=== PATIENT | male | born 1965 | race Caucasian/White ===

== ENCOUNTER 2023-07-07 18:14 | Inpatient (IN) | payer MEDICARE, MEDICAID, SELFPAY ==
[2023-07-07] VITALS (14 sets, daily range): BP systolic 113–179; BP diastolic 58–80; PULSE 97–106; RESP 15–20; TEMP 36.4–37.8; O2SAT 93–100
--- NOTE | ~2023-07-07 | XR_ITS ---
EXAMINATION: XR chest 1V portable Exam Date/Time: 07/07/2023 22:20 L D RN HISTORY: hypoxia N/V/D X 3 DAYS Comparison: None. RESULT: Lines, tubes, and devices: Right IJ dialysis catheter terminating in the right atrium. Coronary nicci ry stents. Lungs and pleura: Streaky bibasilar opacities, likely representing atelectasis. No focal consolidati on, pleural effusion, or pneumothorax. Cardiomediastinal silhouette: Stable. Other: No acute osseous or upper abdominal finding. IMPRESSION: No acute cardiopulmonary process. Reviewed, dictated and finalized at location K. L D RN
--- NOTE | 2023-07-07 18:33 | ECG_ITS ---
Measurements Intervals [employer] Rate: 103 P: 69 HI: 126 QRS: -71 QRSD: 107 T: 27 QT: 374 QTc: 490 Interpretive Statements SINUS TACHYCARDIA POSSIBLE LEFT ATRIAL ENLARGEMENT INCOMPLETE RIGHT BUNDLE BRANCH BLOCK LEFT ANTERIOR FASCICULAR BLOCK BORDERLINE ST ABNORMALITY- INFERIOR LEADS BASELINE ARTIFACT- I, III, AVR, AVL, AVF ABNORMAL ECG NO PREVIOUS ECG AVAILABLE FOR COMPARISON Electronically Signed On 07-07-2023 20:44:26 MORTGAGE LOAN COMPUTATION CLERK by oJno Still D.O.
--- NOTE | 2023-07-07 18:34 | ED.GENADULT ---
HPI - General Adult General Chief complaint: Nausea/Vomiting/Diarrhea <Rand Mcnulty September, Last Filed: 07/07/23 18:37> Stated complaint: out of meds, DM, dialysis <Rand Mcnulty September, - Last Filed: 07/07/23 18:37> Time Seen by Provider: 07/07/23 18:34 <Rand Mcnulty September, - Last Filed: 07/07/23 18:37> Focused HPI: Vincenzo Mccauley is a 57 y/o male with PMHx of ESRD on HD MWF/ DM / who presents with reports of missling dialysis today/ his insurance changed and he ran out of all of his medications and has not had any in 3 days. Reports of N/V for the past 2-3 days. No abdominal pain. GENERAL: appears chronically unwell/ no acute distress. HEAD: Normocephalic, atraumatic. CHEST: No respiratory distress. HEART: Regular rate and rhythm.? NEURO: ?Alert and oriented x3. Patient screened in triage and initial orders placed.? ?Additional care and disposition to be based upon?diagnostic testing and treatment. <Rand Mcnulty September, Last Filed: 07/07/23 18:37> Focused HPI: Vincenzo Mccauley is a 57 y/o male with PMHx of ESRD on HD MWF/ DM / who presents with reports of missling dialysis today/ his insurance changed and he ran out of all of his medications and has not had any in 3 days. Reports of N/V for the past 2-3 days. No abdominal pain. Patient's family member present at bedside states that patient recently moved from a different part of [place] and his new pharmacy has been able to refill his insulin but has not refilled the remainder of his medications as they did not some of them and stock and are currently working to get him those medications as far as she is aware. Patient is currently denying any pain including any chest pain or shortness of breath. GENERAL: Appears chronically unwell/ no acute distress. HEAD: Normocephalic, atraumatic. CHEST: No respiratory distress. HEART: Regular rate and rhythm.? NEURO: ?Alert and oriented x3. Patient screened in triage and initial orders placed.? ?Additional care and disposition to be based upon?diagnostic testing and treatment. <David Berry MD - Last Filed: 07/07/23 22:42> Related Data Allergies/adverse reactions: Allergies Allergy/AdvReac Type Severity Reaction Status Date / Time Penicillins Allergy Anaphylaxis Verified 07/07/23 18:16 <Rand Ruff APRN - Last Filed: 07/07/23 18:37> Review of Systems Review of Systems: All systems are reviewed and are negative unless stated otherwise in the HPI. <David Berry MD - Last Filed: 07/07/23 22:42> PMFSH Comments Past medical history significant for insulin-dependent diabetes mellitus, surgical history significant for multiple of fistula repairs and port placement. Patient denies any tobacco use, alcohol abuse, or illicit drug use. <David Berry MD - Last Filed: 07/07/23 22:42> Exam Narrative: General: Alert, awake, afebrile, in no acute distress. HEENT: PERRL, no rhinorrhea, no post nasal drip, oropharynx clear. Neck: Trachea midline, no JVD, no lymphadenopathy. Cardiovascular: Tachycardic with regular rhythm, no murmurs, rubs or gallops, no peripheral edema. Respiratory: Clear to auscultation bilaterally, no tachypnea, no wheezing, no rhonchi, no rubs, no respiratory distress. Abdomen: Soft, nontender, nondistended, no rebound, no guarding, no peritoneal signs. Musculoskeletal: No joint swelling or deformity, normal muscle tone. Skin: No rashes or petechia, no signs of infection. Psychiatric: Alert and oriented, normal behavior and judgment for situation. Neurological: Alert and oriented to person, place, and time. Follows all commands. No focal deficits, speech is clear and fluent. <David Berry MD - Last Filed: 07/07/23 22:42> Course Vital Signs Vital signs: Vital Signs Temperature 97.6 F 07/07/23 18:28 Pulse Rate 105 H 07/07/23 18:28 Respiratory Rate 20 07/07/23 18:28 Blood Pressure 136/72 07/07/23 18:28 Pulse Oximetry 99 07/07/23 18:28 Ox
--- NOTE | 2023-07-07 19:29 | PC.NURSE ---
Pt called for blood draw and EKG, no answer.
[2023-07-07] MEDS: FAMOTIDINE 20 MG/2 ML VIAL IV PUSH (19:35)
[2023-07-07] MEDS: ONDANSETRON INJ 4 MG/2 ML VIAL IV PUSH (19:35)
[2023-07-07 19:37] LABS: Glucose Point of Care 472 mg/dl (65-105)
[2023-07-07 19:52] LABS: Basophils Absolute Auto 0.1 K/mm3 (0.0-0.1); Basophils Percent Auto 0.5 % (0.2-1.2); Eosinophils Absolute Auto 0.1 K/mm3 (0-0.3); Eosinophils Percent Auto 0.7 % (0-4.4); Hematocrit 37.1 % (42.0-52.0); Hemoglobin 11.9 g/dL (14.0-18.0); Immature Granulocyte Absolute 0.03 K/mm3 (0.00-0.031); Immature Granulocyte Percent A 0.3 % (0-0.5); Lymphocytes Percent Auto 6.3 % (18.3-44.2); Mean Corpuscular HGB Conc 32.1 g/dl (32-36); Mean Corpuscular Hemoglobin 31.4 pg (26-34); Mean Corpuscular Volume 97.9 fl (80-100); Mean Platelet Volume 11.5 fl (7.4-10.4); Monocytes Absolute Auto 0.8 K/mm3 (0.1-0.6); Monocytes Percent Auto 7.3 % (2.6-8.5); Neutrophils Absolute Auto 9.4 K/mm3 (1.3-6.7); Neutrophils Percent Auto 84.9 % (45.5-73.1); Platelet Count Result 200 k/mm3 (150-375); Red Blood Count 3.79 M/mm3 (4.6-6.20); Red Cell Distribution Width 12.6 % (11.5-14.5)
[2023-07-07 20:03] LABS: Lactic Acid Reflex 1.6 mmol/L (0.7-2.0)
[2023-07-07 20:05] LABS: Alanine Aminotransferase 22 U/L (6-50); Albumin Level 4.6 g/dL (3.5-5.1); Alkaline Phosphatase 95 U/L (38-126); Anion Gap 21 mmol/L (8-16); Aspartate Amino Transferase 30 U/L (17-59); Bilirubin,Total 1.1 mg/dL (0.2-1.3); Blood Urea Nitrogen 50 mg/dL (9-20); Calcium 9.2 mg/dL (8.4-10.2); Carbon Dioxide 23 mmol/L (22-30); Chloride 93 mmol/L (98-107); Estimated CRCL calculation 8 ml/min; Estimated Glomerular Filt Rate 6; Glucose 464 mg/dL (65-110); Lipase 30 U/L (23-300); Potassium 4.6 mmol/L (3.4-5.0); Sodium 137 mmol/L (137-145)
[2023-07-07 20:23] LABS: Troponin I 0.051 ng/mL (0.000-0.034)
[2023-07-07 20:25] LABS: Glucose Point of Care 443 mg/dl (65-105)
[2023-07-07 20:39] LABS: Alveolar/Arterial O2 Gradient 14.2 mmHg; Base Excess ABG -3.1 mEq/l (+/-2.0); Carboxyhemoglobin 0.8 % THb (0-2.0); Fractional Inspired Oxygen 28 %; HCO3 ABG 22.1 mEq/l (22.0-26.0); Methemoglobin ABG 0.3 %THb (0-1.5); Oxygen Content ABG 16.3 %vol (16.0-22.0); Oxygen Saturation ABG 98.7 % (95.0-100.0); Oxyhemoglobin 96.9 % THb (90.0-100.0); PCO2 ABG 40.3 mmHg (35.0-45.0); PO2 ABG 137.9 mmHg (80.0-100.0); PO2 FiO2 Ratio Arterial Blood 4.92 %; Total Hemoglobin 11.8 g/dL (12.0-18.0); pH ABG 7.357 (7.350-7.450)
[2023-07-07 20:40] LABS: Device NASAL CANNULA; Site Drawn RIGHT BRACHIAL
[2023-07-07 20:55] LABS: Beta-Hydroxybutyrate/Acetoacetate 4.95 mmol/L (0.02-0.27)
[2023-07-07 21:15] LABS: Influenza A QL RT-PCR Negative (Negative); Influenza B QL RT-PCR Negative (Negative); SARS-CoV-2 RNA PCR Negative (Negative)
[2023-07-07] MEDS: SODIUM CHLORIDE 0.9% IV 1,000 ML 150 ML IV CONT (21:21)
[2023-07-07] MEDS: SODIUM CHLORIDE 0.9% IV 1,000 ML 999 ML IV CONT (21:29)
[2023-07-07 21:40] LABS: Magnesium 2.3 mg/dL (1.6-2.3); Phosphorus 7.5 mg/dL (2.5-4.5)
[2023-07-07 21:42] LABS: Glucose Point of Care 444 mg/dl (65-105)
--- NOTE | 2023-07-07 21:50 | PC.NURSE ---
Verbal order from Dr. Berry to start potassium drip with start of Insulin drip. provider made aware of hospital insulin drip protocol.
[2023-07-07 21:54] LABS: Hemoglobin A1C 10.6 % (<5.7)
--- NOTE | 2023-07-07 21:57 | PC.NURSE ---
EDP Dr Berry now gave verbal order to only start insulin drip, no other IV fluids.
--- NOTE | 2023-07-07 22:01 | PC.NURSE ---
Pt unable to urinate since coming back to room from triage. pt is a&ox4 and is refusing straight catheter.
[2023-07-07] MEDS: INSULIN HUMAN REGULAR (*BKC) 100 UNITS in SODIUM CHLORIDE 0.9% IV 99 ML 9.1 UNITS IV CONT (22:03)
--- NOTE | 2023-07-07 22:05 | ECG_ITS ---
Measurements Intervals [employer] Rate: 96 P: 58 TN: 139 QRS: -58 QRSD: 85 T: 49 QT: 379 QTc: 481 Interpretive Statements SINUS RHYTHM POSSIBLE LEFT ATRIAL ENLARGEMENT INCOMPLETE RIGHT BUNDLE BRANCH BLOCK LEFT ANTERIOR FASCICULAR BLOCK ABNORMAL ECG COMPARED TO ECG 07/07/2023 19:31:17 SINUS RHYTHM NOW PRESENT Electronically Signed On 07-08-2023 6:44:20 PLATFORM SOFTWARE ENGINEER by Jono Still D.O.
[2023-07-07 22:23] LABS: Acetaminophen < 10 ug/mL (10-30); Salicylate < 1.0 mg/dL (2-20)
[2023-07-07 22:38] LABS: Troponin I 0.055 ng/mL (0.000-0.034)
--- NOTE | 2023-07-07 22:45 | ADMGEN ---
This patient, Vincenzo Mccauley, was admitted to Intensive Care Unit-3. Patient/family oriented to hospital policies and general routines including ID bracelet, bed and alarms, visiting hours, pain management, procedures, bathroom and other care routines, personal items, smoking policy, room service/diet, and visiting hours. Information on how to activate the Rapid Response Team has been discussed. Patient/Family are encouraged to report perceived risks to care and to ask questions if they do not understand what they are told or what they should do.
[2023-07-07 22:59] LABS: Influenza A QL RT-PCR Negative (Negative); Influenza B QL RT-PCR Negative (Negative); RSV RNA, RT-PCR Negative (Negative); SARS-CoV-2 RNA PCR Negative (Negative)
--- NOTE | 2023-07-07 23:13 | PM.IMHP ---
H&P: HPI History of Present Illness Date/Time: 07/07/23 23:13 Chief Complaint: Nausea vomiting diarrhea shortness of breath Narrative: This is a 57-year-old male with past medical history insulin-dependent diabetes mellitus, ESRD on hemodialysis Friday who presents with nausea vomiting and diarrhea for 2 days and reports missing dialysis today and not having taken his medications in 3 days including insulin. He has recently moved from the [facility] and is having insurance issues. He denies abdominal pain chest pain shortness of breath cough fever chills. He characterizes the diarrhea as brown. He was placed on 2 L of nasal cannula. Chest x-ray not reading as overt abnormalities. White count of 11.0. ABG demonstrating pH is 7.35. Anion gap 21. BUN 50. Creatinine 9.3. Glucose 472. Hemoglobin A1c 10.6%. Lactic acid 1.6. Troponin 0.051 and 0.055. Beta hydroxybutyrate 4.95. Salicylate and acetaminophen unremarkable. Flu COVID RSV PCR negative. In the [facility] he was given Zofran, Pepcid, 1 L normal saline bolus. Meds Home Medications and Allergies Allergies Allergy/AdvReac Type Severity Reaction Status Date / Time Penicillins Allergy Anaphylaxis Verified 07/07/23 18:16 Vital Signs Vital Signs - 24 hr 07/07/23 18:28 07/07/23 20:08 07/07/23 20:13 Temperature 97.6 F 98.5 F Pulse Rate 105 H 106 H Respiratory Rate 20 15 Blood Pressure 136/72 179/80 H Pulse Oximetry 99 100 100 Oxygen Delivery Room Air Nasal Cannula Oxygen Flow Rate 3 07/07/23 20:01 07/07/23 20:32 07/07/23 20:47 Temperature Pulse Rate 104 H 102 H 103 H Respiratory Rate 15 18 16 Blood Pressure 179/80 H 171/77 H 130/74 Pulse Oximetry 93 100 Oxygen Delivery Oxygen Flow Rate 07/07/23 21:32 07/07/23 21:45 07/07/23 22:00 Temperature Pulse Rate 97 99 98 Respiratory Rate 16 19 17 Blood Pressure 153/72 H Pulse Oximetry 100 100 Oxygen Delivery Oxygen Flow Rate 07/07/23 22:15 07/07/23 22:17 07/07/23 22:41 Temperature Pulse Rate 99 99 Respiratory Rate 17 17 Blood Pressure 139/73 Pulse Oximetry 100 100 100 Oxygen Delivery Nasal Cannula Oxygen Flow Rate 2 Exam Const: General: comfortable and no acute distress Other: A&O x3. Cooperative Eyes: Pupils: Equal, round and reactive pupils present Neck: Neck: supple Resp: Effort & Inspection: normal respiratory effort Auscultation: crackles Cardio: Rate: regular rate Rhythm: regular rhythm GI: GI Palp: Yes Soft to palpation and No Tenderness to palpation present (GI) Extrem: General: no edema H&P: Results Labs Labs: Short CBC 07/07/23 Range/Units 19:33 WBC 11.0 H (4.5-10.0) K/mm3 Hgb 11.9 L (14.0-18.0) g/dL Hct 37.1 L (42.0-52.0) % Plt Count 200 (150-375) k/mm3 BMP 07/07/23 19:33 Sodium 137 Potassium 4.6 Chloride 93 L Carbon Dioxide 23 BUN 50 H Creatinine 9.30 H Glucose 464 H Calcium 9.2 Cardiac Enzymes 07/07/23 07/07/23 Range/Units 19:33 22:02 Troponin I 0.051 H* 0.055 H* (0.000-0.034) ng/mL Liver Function 07/07/23 Range/Units 19:33 Total Bilirubin 1.1 (0.2-1.3) mg/dL AST 30 (17-59) U/L ALT 22 (6-50) U/L Alkaline Phosphatase 95 (38-126) U/L Albumin 4.6 (3.5-5.1) g/dL Assessment and Plan Assessment and plan (1) DKA (diabetic ketoacidosis): Code(s): E11.10 - Type 2 diabetes mellitus with ketoacidosis without coma Status: Acute (2) Increased anion gap metabolic acidosis: Code(s): E87.29 - Other acidosis Status: Acute (3) ESRD (end stage renal disease) on dialysis: Code(s): N18.6 - End stage renal disease; Z99.2 - Dependence on renal dialysis Status: Acute (4) Nausea, vomiting and diarrhea: Code(s): R11.2 - Nausea with vomiting, unspecified; R19.7 - Diarrhea, unspecified Status: Acute (5) Elevated troponin: Code(s): R79.89 - Other spe
[2023-07-07 23:14] LABS: Glucose Point of Care 400 mg/dl (65-105)
[2023-07-07 23:29] LABS: Fractional Inspired Oxygen 24 %; PO2 VBG 31.1 mmHg (35.0-45.0); pH VBG 7.301 (7.300-7.400)
[2023-07-07 23:30] LABS: Device NASAL CANNULA
[2023-07-07] MEDS: INSULIN HUMAN REGULAR (*BKC) 100 UNITS in SODIUM CHLORIDE 0.9% IV 99 ML IV CONT (23:30)
[2023-07-07 23:51] LABS: Lactic Acid Reflex 2.2 mmol/L (0.7-2.0)
[2023-07-08] VITALS (31 sets, daily range): BP systolic 106–187; BP diastolic 65–101; PULSE 90–106; RESP 12–74; TEMP 35.5–37.7; O2SAT 88–100; BMI 28.4
--- NOTE | 2023-07-08 | ECHO_ITS ---
Patient Info Name: Vincenzo Mccauley Age: 57 years : 1965 Gender: Male Ht: 70 in Wt: 198 lbs BSA: 2.12 m2 HR: 101 bpm BP: 152 / 96 mmHg Heart Rhythm: Sinus Rhythm Technical Quality: Good Exam Date: 07/08/2023 11:25 AM Exam Location: Echo Lab Patient Status: Inpatient Admit Date: 07/07/2023 Staff Ordering Physician: Nano Ireland MD [place] Clerk: Glenny Birmingham RDCS Attending Provider: Nadja Stern MD Referring Physician: Beka GIRALDO; Exam Type: CA echo doppler color flow Study Info Indications - elevated troponin Complete two-dimensional, color flow and Doppler transthoracic echocardiogram is performed. Summary 1. Complete two-dimensional, color flow and Doppler transthoracic echocardiogram is performed. 2. Left ventricular chamber dimension is normal. 3. Left ventricular systolic function is normal, estimated at 65-70%. 4. There is mild concentric increased left ventricular wall thickness. 5. The left ventricular diastolic function is grade I diastolic dysfunction. 6. E/e' 24 is elevated. 7. There is moderate aortic valve sclerosis. 8. There is mild aortic valve stenosis with a peak velocity of 244 cm/s, mean gradient of 13 mmHg, and aortic valve area of 1.6 cm2. 9. Mild pulmonary hypertension, estimated pulmonary arterial systolic pressure is 41 mmHg. Left Ventricle E/e' 24 is elevated. Left ventricular chamber dimension is normal. Left ventricular systolic function is normal, estimated at 65-70%. There is mild concentric increased left ventricular wall thickness. The left ventricular diastolic function is grade I diastolic dysfunction. Right Ventricle Right ventricular systolic function is normal and with normal TAPSE 2.6 cm. Right ventricular chamber dimension is normal. Left Atria Left atrial chamber dimension is normal. Right Atria Right atrial chamber dimension is normal. Aortic Valve The aortic valve is trileaflet. There is moderate aortic valve sclerosis. There is mild aortic valve stenosis with a peak velocity of 244 cm/s, mean gradient of 13 mmHg, and aortic valve area of 1.6 cm2. There is no aortic valve regurgitation. Pulmonic Valve There is no pulmonic regurgitation. Mitral Valve There is no mitral valve stenosis. There is no mitral valve regurgitation. Tricuspid Valve There is no tricuspid valve regurgitation. Mild pulmonary hypertension, estimated pulmonary arterial systolic pressure is 41 mmHg. Pericardium/Pleural There is no pericardial effusion. Inferior Vena Cava Normal inferior vena cava with >50% collapse upon inspiration consistent with normal right atrial pressure, 5 mmHg. Aorta The aortic root size at the sinus of Valsalva is normal. Left Ventricular Outflow Tract Name Value Normal LVOT 2D LVOT Diameter 2.0 cm LVOT Doppler LVOT Peak Gradient 7 mmHg LVOT Mean Gradient 4 mmHg LVOT VTI 23 cm LVOT VTI/AV VTI Ratio 0.5 LVOT Stroke Volume 71 ml LVOT CO 7.0 l/min LVOT CI 3.3 l/min/m2 Pulmonic Valve
[2023-07-08 00:27] LABS: Anion Gap 18 mmol/L (8-16); Blood Urea Nitrogen 50 mg/dL (9-20); Calcium 8.9 mg/dL (8.4-10.2); Carbon Dioxide 25 mmol/L (22-30); Chloride 96 mmol/L (98-107); Estimated CRCL calculation 8 ml/min; Estimated Glomerular Filt Rate 6; Glucose 369 mg/dL (65-110); Magnesium 2.3 mg/dL (1.6-2.3); Phosphorus 6.7 mg/dL (2.5-4.5); Sodium 139 mmol/L (137-145)
[2023-07-08 00:36] LABS: Glucose Point of Care 243 mg/dl (65-105)
[2023-07-08 01:44] LABS: Glucose Point of Care 200 mg/dl (65-105)
[2023-07-08 02:38] LABS: Reflex Lactic Acid Yes or No Add Lactic
[2023-07-08 03:11] LABS: Glucose Point of Care 175 mg/dl (65-105)
[2023-07-08 04:10] LABS: Glucose Point of Care 172 mg/dl (65-105)
[2023-07-08 04:25] LABS: Fractional Inspired Oxygen 24 %; HCO3 VBG 29.8 mEq/l (24.0-30.0); PCO2 VBG 54.3 mmHg (42.0-48.0); PO2 VBG 32.2 mmHg (35.0-45.0); pH VBG 7.358 (7.300-7.400)
[2023-07-08 04:26] LABS: Device NASAL CANNULA
[2023-07-08 04:56] LABS: Basophils Absolute Auto 0.1 K/mm3 (0.0-0.1); Basophils Percent Auto 0.8 % (0.2-1.2); Eosinophils Absolute Auto 0.2 K/mm3 (0-0.3); Hematocrit 34.5 % (42.0-52.0); Hemoglobin 10.9 g/dL (14.0-18.0); Immature Granulocyte Absolute 0.05 K/mm3 (0.00-0.031); Immature Granulocyte Percent A 0.5 % (0-0.5); Lymphocytes Percent Auto 9.1 % (18.3-44.2); Mean Corpuscular HGB Conc 31.6 g/dl (32-36); Mean Corpuscular Hemoglobin 31.3 pg (26-34); Mean Corpuscular Volume 99.1 fl (80-100); Mean Platelet Volume 11.3 fl (7.4-10.4); Monocytes Absolute Auto 0.8 K/mm3 (0.1-0.6); Neutrophils Absolute Auto 7.9 K/mm3 (1.3-6.7); Neutrophils Percent Auto 79.6 % (45.5-73.1); Platelet Count Result 198 k/mm3 (150-375); Red Blood Count 3.48 M/mm3 (4.6-6.20); Red Cell Distribution Width 12.5 % (11.5-14.5); White Blood Count 9.9 K/mm3 (4.5-10.0)
[2023-07-08 05:11] LABS: Alanine Aminotransferase 19 U/L (6-50); Albumin Level 4.2 g/dL (3.5-5.1); Alkaline Phosphatase 97 U/L (38-126); Anion Gap 15 mmol/L (8-16); Aspartate Amino Transferase 20 U/L (17-59); Bilirubin,Total 0.7 mg/dL (0.2-1.3); Blood Urea Nitrogen 51 mg/dL (9-20); Calcium 8.9 mg/dL (8.4-10.2); Carbon Dioxide 26 mmol/L (22-30); Chloride 98 mmol/L (98-107); Estimated CRCL calculation 8 ml/min; Estimated Glomerular Filt Rate 6; Glucose 185 mg/dL (65-110); Magnesium 2.3 mg/dL (1.6-2.3); Phosphorus 5.7 mg/dL (2.5-4.5); Potassium 3.8 mmol/L (3.4-5.0); Sodium 139 mmol/L (137-145)
[2023-07-08 05:27] LABS: Glucose Point of Care 172 mg/dl (65-105)
[2023-07-08 05:29] LABS: Troponin I 0.066 ng/mL (0.000-0.034)
[2023-07-08 06:02] LABS: Lactic Acid Reflex 1.3 mmol/L (0.7-2.0)
[2023-07-08 06:04] LABS: MRSA (PCR) NOT DETECTED (NOT DETECTE)
[2023-07-08 06:05] LABS: Procalcitonin 0.6 ng/mL
[2023-07-08 06:19] LABS: Glucose Point of Care 157 mg/dl (65-105)
[2023-07-08 07:25] LABS: Glucose Point of Care 158 mg/dl (65-105)
[2023-07-08 08:03] LABS: Glucose Point of Care 151 mg/dl (65-105)
[2023-07-08 08:53] LABS: Anion Gap 12 mmol/L (8-16); Blood Urea Nitrogen 52 mg/dL (9-20); Calcium 9.1 mg/dL (8.4-10.2); Carbon Dioxide 30 mmol/L (22-30); Chloride 99 mmol/L (98-107); Estimated CRCL calculation 8 ml/min; Estimated Glomerular Filt Rate 5; Glucose 147 mg/dL (65-110); Sodium 141 mmol/L (137-145)
[2023-07-08] MEDS: ENOXAPARIN 30 MG/0.3 ML SYRINGE SUB-Q (08:59)
[2023-07-08] MEDS: FAMOTIDINE 20 MG/2 ML VIAL 10 MG IV PUSH ×2 (08:59→20:44)
--- NOTE | 2023-07-08 09:00 | WPDCNINT ---
Assessment and Plan Assessment and plan (1) DKA (diabetic ketoacidosis): Code(s): E11.10 - Type 2 diabetes mellitus with ketoacidosis without coma Status: Acute Assessment and Plan: Patient presented with nausea, vomiting, diarrhea. Has not taking his insulin for 3 days prior to admission due to insurance issues, as he has relocated from [facility] to this area. -patient was found to have elevated blood sugars, elevated beta hydroxybutyrate, elevated anion gap. Patient was given 1 L IV fluid bolus and started on insulin infusion per DKA protocol (patient does have end-stage renal disease on dialysis, Friday, Friday, Friday) -currently remains on insulin infusion -anion gap has closed, CO2 is 30 -will transition patient to long-acting insulin and sliding scale insulin -diabetic diet -will have para educator and dietitian evaluate the patient (2) ESRD (end stage renal disease) on dialysis: Code(s): N18.6 - End stage renal disease; Z99.2 - Dependence on renal dialysis Status: Acute Assessment and Plan: Patient has a history of end-stage renal disease on dialysis, Friday, Friday, Friday -nephrology has been consulted -dialysis per Nephrology (3) Nausea, vomiting and diarrhea: Code(s): R11.2 - Nausea with vomiting, unspecified; R19.7 - Diarrhea, unspecified Status: Acute Assessment and Plan: Nausea, vomiting and diarrhea have resolved likely related to diabetic ketoacidosis -continue to monitor -patient on metoclopramide (4) Acute hypoxemic respiratory failure: Code(s): J96.01 - Acute respiratory failure with hypoxia Status: Acute Assessment and Plan: Patient seems to have sleep apnea and desaturates while sleeping. Currently on 2 L nasal cannula with adequate O2 sats -patient may require a sleep study as an outpatient (5) Elevated troponin: Code(s): R79.89 - Other specified abnormal findings of blood chemistry Status: Acute Assessment and Plan: Troponins were mildly elevated but flat, could be related to diabetic ketoacidosis, end-stage renal disease, -patient denies any chest pain, difficulty breathing -will check echocardiogram Plan DVT prophylaxis: Lovenox Stress ulcer prophylaxis: Not indicated Nutrition: Diabetic diet Code Status: Full code Critical Care Time Spent: 47 minutes Due to a high probability of clinically significant, life threatening deterioration, the patient required my highest level of preparedness to intervene emergently and I personally spent this critical care time directly and personally managing the patient. This critical care time included obtaining a history; examining the patient; pulse oximetry; ordering and review of studies; arranging urgent treatment with development of a management plan; evaluation of patient's response to treatment; frequent reassessment; and discussions with other providers. It was exclusive of separately billable procedures and treating other patients and teaching time. Please see Assessment and Plan section and the rest of the note for further information on patient assessment and treatment This dictation may have been done utilizing a voice recognition system. Attempts have been made to correct errors. However, there may be uncorrected grammatical, spelling, and recognitions errors present. Juvenile Officer Consult Note Consult date: 07/08/23 Reason for consult: Diabetic ketoacidosis, nausea, vomiting, diarrhea, end-stage renal disease on HD (M,W,F), missed dialysis on day of admission HPI: Vincenzo Mccauley is a 57 year old male with past medical history of diabetes, on insulin, end-stage renal disease on hemodialysis, Friday, Friday, Friday, legally blind, presented the ED on 07/07/2023 with complains of nausea, vomiting, diarrhea for 2-3 days and also reported missing dialysis on the day of admission on 07/07/2023. He has not taken medications the last 3 days prior to admis
[2023-07-08] MEDS: DEXTROSE 5%/0.45% SOD CHL 1,000 ML 150 ML (09:02)
[2023-07-08 09:28] LABS: Glucose Point of Care 139 mg/dl (65-105)
[2023-07-08] MEDS: INSULIN GLARGINE (*BKC) 100 UNITS/ML 18 UNITS SUB-Q (09:33)
[2023-07-08 10:37] LABS: Glucose Point of Care 138 mg/dl (65-105)
[2023-07-08 11:08] LABS: Hepatitis B Surface Antigen Negative (Negative)
[2023-07-08 11:17] LABS: Glucose Point of Care 224 mg/dl (65-105)
[2023-07-08 12:44] LABS: Hepatitis B Surface Anti Res Indeterminate
[2023-07-08 14:33] LABS: Toxigenic C. Diff NEGATIVE (NEGATIVE)
--- NOTE | 2023-07-08 17:04 | PCCDE ---
Pt sleeping at attempt to educate. FJ
[2023-07-08] MEDS: INSULIN ASPART (*BKC) 100 UNITS/ML SUB-Q (17:06)
--- NOTE | 2023-07-08 17:16 | PM.IMPN ---
Progress Note: A&P Assessment and Plan (1) DKA (diabetic ketoacidosis): Code(s): E11.10 - Type 2 diabetes mellitus with ketoacidosis without coma Status: Acute Assessment and Plan: Patient presented with nausea, vomiting, diarrhea. Has not taking his insulin for 3 days prior to admission due to insurance issues, as he has relocated from [facility] to this area. - DKA protocol in ICU -pt off insulin drip ok to transfer to medical floor (2) ESRD (end stage renal disease) on dialysis: Code(s): N18.6 - End stage renal disease; Z99.2 - Dependence on renal dialysis Status: Acute Assessment and Plan: Patient has a history of end-stage renal disease on dialysis, Friday, Friday, Friday -nephrology has been consulted -dialysis per Nephrology (3) Nausea, vomiting and diarrhea: Code(s): R11.2 - Nausea with vomiting, unspecified; R19.7 - Diarrhea, unspecified Status: Acute Assessment and Plan: Nausea, vomiting and diarrhea have resolved likely related to diabetic ketoacidosis -patient on metoclopramide (4) Acute hypoxemic respiratory failure: Code(s): J96.01 - Acute respiratory failure with hypoxia Status: Acute Assessment and Plan: Patient seems to have sleep apnea and desaturates while sleeping. Currently on 2 L nasal cannula with adequate O2 sats -patient may require a sleep study as an outpatient (5) Elevated troponin: Code(s): R79.89 - Other specified abnormal findings of blood chemistry Status: Acute Assessment and Plan: Troponins were mildly elevated but flat, could be related to diabetic ketoacidosis, end-stage renal disease, - await echo report Plan . Subjective Date/time seen: 07/08/23 17:16 Interval history: ?57-year-old male with past medical history insulin-dependent diabetes mellitus, ESRD on hemodialysis Friday who presents with nausea vomiting and diarrhea for 2 days and reports missing dialysis today and not having taken his medications in 3 days including insulin.? He has recently moved from the [facility] area and is having insurance issues.? He denies abdominal pain chest pain shortness of breath cough fever chills.? He characterizes the diarrhea as brown. Pt has been missing medications, pt moved from [facility] . Admitted in DKA DKA is resolved ok to transfer to the floor currently receiving dialysis. Review of Systems Review of Systems: No specific complaints today Exam Const: General: comfortable and no acute distress Other: A&O x3. Cooperative Eyes: Pupils: Equal, round and reactive pupils present Neck: Neck: supple Resp: Effort & Inspection: normal respiratory effort Auscultation: crackles Cardio: Rate: regular rate Rhythm: regular rhythm GI: GI Palp: Yes Soft to palpation and No Tenderness to palpation present (GI) Neuro: Cranial nerves: Yes Equal, round and reactive pupils present Extrem: General: no edema Objective Data Vital Signs Vital Signs: Vital Signs - 24 hr 07/07/23 18:28 07/07/23 20:08 07/07/23 20:13 Temperature 36.4 C 36.9 C Pulse Rate 105 H 106 H Respiratory Rate 20 15 Blood Pressure 136/72 179/80 H Pulse Oximetry 99 100 100 Oxygen Delivery Room Air Nasal Cannula Oxygen Flow Rate 3 07/07/23 20:01 07/07/23 20:32 07/07/23 20:47 Temperature Pulse Rate 104 H 102 H 103 H Respiratory Rate 15 18 16 Blood Pressure 179/80 H 171/77 H 130/74 Pulse Oximetry 93 100 Oxygen Delivery Oxygen Flow Rate 07/07/23 21:32 07/07/23 21:45 07/07/23 22:00 Temperature Pulse Rate 97 99 98 Respiratory Rate 16 19 17 Blood Pressure 153/72 H Pulse Oximetry 100 100 Oxygen Delivery Oxygen Flow Rate 07/07/23 22:15 07/07/23 22:17 07/07/23 22:41 Temperature Pulse Rate 99 99 Respiratory Rate 17 17 Blood Pressure 139/73 Pulse Oximetry 100 100 100 Oxygen Delivery Nasal Cannula Oxygen Flow Rate
--- NOTE | 2023-07-08 17:30 | PM.CNNEP ---
Assessment and Plan Assessment and plan (1) End stage renal disease: Code(s): N18.6 - End stage renal disease Status: Chronic Assessment and Plan: HD today eventually transition to Fri/Fri/Friday outpatient dialysis schedule outpatient dialysis clinic = [facility] (2) DKA (diabetic ketoacidosis): Code(s): E11.10 - Type 2 diabetes mellitus with ketoacidosis without coma Status: Acute Assessment and Plan: elevated blood sugars in association with elevated beta hydroxybutyrate as wekkas elevated anion gap s/p IVF bolus and initiated on insulin gtt gap has closed -- transitioning off insulin gtt to long acting insulin and SSI follow blood sugars (3) Nausea, vomiting and diarrhea: Code(s): R11.2 - Nausea with vomiting, unspecified; R19.7 - Diarrhea, unspecified Status: Acute Assessment and Plan: likely secondary to #2 resumed on home reglan -- component of gastroparesis (?) follow symptoms (4) Hypoxia: Code(s): R09.02 - Hypoxemia Status: Acute Assessment and Plan: drop in O2 saturations with sleep -- possbly due to undiagnosed SWATHI supplmental oxygen in place with good oxygenation will likely need outpatient sleep study (5) Anemia: Code(s): D64.9 - Anemia, unspecified Status: Chronic Assessment and Plan: presumably related to ESRD Epogen with HD follow trend of H/H I will continue to follow the patient with you while he remains hospitalized and make further recommendations as needed. Thank you for allowing me to participate in the care of this patient. History of Present Illness Reason for Consult Consult date: 07/08/23 Reason for consult: end stage renal disease Chief Complaint Chief complaint: DKA,ESRD on HD MWF History of Present Illness Narrative: The patient is a 57-year-old male with a past medical history as outlined below who presented to [facility] Emergency Room with complaints of nausea, vomiting, and diarrhea. The patient reports the nausea, vomiting, diarrhea has been going on for the past 2-3 days if not longer and because he felt so bad, he did not go to his dialysis treatment that was scheduled for yesterday on 07/07/2023. He reports recently moving to this area from [facility] and apparently has had some issues and problems with his medical insurance that resulted in him not being able to take his medications for last 3 days if not longer. Due to the persistence of the in GI symptoms as mentioned, he presented to the ER for further assessment. Workup and evaluation emergency room noted the patient to be hemodynamically stable but with the noted GI symptoms. Routine blood test demonstrated labs consistent with his known history of end-stage renal disease but he was noted have a blood sugar of 464, and anion gap of 21, an elevated beta hydroxybutyrate. Salicylate and acetaminophen levels within normal limits and subsequent viral testing for influenza, COVID, and RSV were negative. His hemoglobin A1c was noted to be 10.6 and his troponins were mildly elevated but flat. Given his hyperglycemia and evidence of DKA, he was given a 1 L fluid bolus and started on insulin drip with subsequent admission to the ICU for further management. Since his admission to the ICU, his insulin drip is being weaned off as his anion gap is closed and he has had no further issues or problems with regard to nausea, vomiting or diarrhea. Overall he states he feels much better. Renal consultation was requested due to his end-stage renal disease. The patient normally dialyzed on a Friday, Friday, Friday dialysis schedule at for cine assault in/[facility] but as already mentioned above, he missed his dialysis treatment on Friday. He has no critical electrolyte abnormalities and his volume status is stable at this time. He did of course have DKA but this has
[2023-07-08 17:57] LABS: Glucose Point of Care 279 mg/dl (65-105)
[2023-07-08 18:42] LABS: Anion Gap 11 mmol/L (8-16); Blood Urea Nitrogen 32 mg/dL (9-20); Calcium 9.2 mg/dL (8.4-10.2); Carbon Dioxide 26 mmol/L (22-30); Chloride 101 mmol/L (98-107); Estimated CRCL calculation 13 ml/min; Estimated Glomerular Filt Rate 10; Glucose 194 mg/dL (65-110); Potassium 3.6 mmol/L (3.4-5.0); Sodium 138 mmol/L (137-145)
[2023-07-08 18:54] LABS: Hemoglobin A1C 10.5 % (<5.7)
[2023-07-08 20:38] LABS: Glucose Point of Care 151 mg/dl (65-105)
--- NOTE | 2023-07-08 23:05 | PC.NURSE ---
Report given to Diana SETHI. No questions. All patient belongings gathered and transferred with patient.
--- NOTE | 2023-07-08 23:08 | PC.NURSE ---
Addendum entered by Diana Sosa RN 07/09/23 01:05: Report received from JOSSIE Proctor. Original Note: This pt was transferred from ICU to 2nd Medical Room 047 @[id number].
[2023-07-09] VITALS (13 sets, daily range): BP systolic 100–159; BP diastolic 47–88; PULSE 89–100; RESP 16–18; TEMP 36.8–37; O2SAT 97–99; BMI 28.4
[2023-07-09 04:11] LABS: Glucose Point of Care 290 mg/dl (65-105)
[2023-07-09 05:28] LABS: Basophils Absolute Auto 0.1 K/mm3 (0.0-0.1); Eosinophils Absolute Auto 0.3 K/mm3 (0-0.3); Eosinophils Percent Auto 4.2 % (0-4.4); Hematocrit 34.9 % (42.0-52.0); Hemoglobin 11.3 g/dL (14.0-18.0); Immature Granulocyte Absolute 0.05 K/mm3 (0.00-0.031); Immature Granulocyte Percent A 0.7 % (0-0.5); Lymphocytes Absolute Auto 0.84 K/mm3 (0.9-3.2); Lymphocytes Percent Auto 12.1 % (18.3-44.2); Mean Corpuscular HGB Conc 32.4 g/dl (32-36); Mean Corpuscular Hemoglobin 31.8 pg (26-34); Mean Corpuscular Volume 98.3 fl (80-100); Monocytes Absolute Auto 0.6 K/mm3 (0.1-0.6); Monocytes Percent Auto 8.8 % (2.6-8.5); Neutrophils Absolute Auto 5.1 K/mm3 (1.3-6.7); Neutrophils Percent Auto 73.2 % (45.5-73.1); Platelet Count Result 199 k/mm3 (150-375); Red Blood Count 3.55 M/mm3 (4.6-6.20); Red Cell Distribution Width 12.5 % (11.5-14.5)
[2023-07-09 05:43] LABS: Alanine Aminotransferase 18 U/L (6-50); Albumin Level 4.2 g/dL (3.5-5.1); Alkaline Phosphatase 103 U/L (38-126); Anion Gap 12 mmol/L (8-16); Aspartate Amino Transferase 21 U/L (17-59); Bilirubin,Total 0.7 mg/dL (0.2-1.3); Blood Urea Nitrogen 22 mg/dL (9-20); Calcium 9.3 mg/dL (8.4-10.2); Carbon Dioxide 24 mmol/L (22-30); Chloride 101 mmol/L (98-107); Estimated CRCL calculation 12 ml/min; Estimated Glomerular Filt Rate 9; Glucose 296 mg/dL (65-110); Phosphorus 4.8 mg/dL (2.5-4.5); Potassium 4.3 mmol/L (3.4-5.0); Sodium 137 mmol/L (137-145)
[2023-07-09 08:15] LABS: Glucose Point of Care 260 mg/dl (65-105)
[2023-07-09] MEDS: FUROSEMIDE 80 MG TABLET PO ×2 (08:26→16:30)
[2023-07-09] MEDS: SEVELAMER CARBONATE 800 MG TABLET 1600 MG PO ×3 (08:27→16:29)
[2023-07-09] MEDS: CLOPIDOGREL BISULFATE 75 MG TABLET PO (08:27)
[2023-07-09] MEDS: ENOXAPARIN 30 MG/0.3 ML SYRINGE SUB-Q (08:28)
[2023-07-09] MEDS: SERTRALINE HCL 50 MG TABLET PO (08:28)
[2023-07-09] MEDS: FAMOTIDINE 20 MG/2 ML VIAL 10 MG IV PUSH ×2 (08:29→21:03)
[2023-07-09] MEDS: INSULIN ASPART (*BKC) 100 UNITS/ML SUB-Q ×2 (08:33→21:02)
[2023-07-09] MEDS: INSULIN GLARGINE (*BKC) 100 UNITS/ML 18 UNITS SUB-Q (08:34)
--- NOTE | 2023-07-09 09:01 | PM.IMPN ---
Progress Note: A&P Assessment and Plan (1) DKA (diabetic ketoacidosis): Code(s): E11.10 - Type 2 diabetes mellitus with ketoacidosis without coma Status: Acute Assessment and Plan: Patient presented with nausea, vomiting, diarrhea. Has not taking his insulin for 3 days prior to admission due to insurance issues, as he has relocated from [facility] to this area. - DKA protocol in ICU -pt off insulin drip ok to transfer to medical floor 07/08 Lantus 18 units daily and high-dose sliding scale initiated yesterday patient's home dose of Lantus is 30 units daily hypoglycemia protocol in place morning glucose 296 will increase Lantus dosing today continue glucose monitoring (2) ESRD (end stage renal disease) on dialysis: Code(s): N18.6 - End stage renal disease; Z99.2 - Dependence on renal dialysis Status: Acute Assessment and Plan: Patient has a history of end-stage renal disease on dialysis, Friday, Friday, Friday -nephrology has been consulted -dialysis per Nephrology 07/08 outpatient dialysis clinic = [facility] patient went to dialysis today dialysis stopped early due to her behavior with dialysis nurse notified okay with stopping early- 600 of fluid off BUN 22, creatinine 6.5 (3) Nausea, vomiting and diarrhea: Code(s): R11.2 - Nausea with vomiting, unspecified; R19.7 - Diarrhea, unspecified Status: Acute Assessment and Plan: Nausea, vomiting and diarrhea have resolved likely related to diabetic ketoacidosis -patient on metoclopramide. 07/08 patient denied any nausea vomiting or diarrhea at this time. resolved (4) Acute hypoxemic respiratory failure: Code(s): J96.01 - Acute respiratory failure with hypoxia Status: Acute Assessment and Plan: Patient seems to have sleep apnea and desaturates while sleeping. Currently on 2 L nasal cannula with adequate O2 sats -patient may require a sleep study as an outpatient 07/08 patient denies history of sleep apnea, when questioned about his respiratory symptoms throughout the night, such a awakening by coughing, he expresses he does not know patient observed on room air with no respiratory distress noted (5) Elevated troponin: Code(s): R79.89 - Other specified abnormal findings of blood chemistry Status: Acute Assessment and Plan: Troponins were mildly elevated but flat, could be related to diabetic ketoacidosis, end-stage renal disease, - await echo report 07/08 echo noted Left ventricular systolic function is normal, estimated at 65-70%. The left ventricular diastolic function is grade I diastolic dysfunction. Plan . Time Spent With Patient Time with patient: 15 - 25 minutes Subjective Date/time seen: 07/09/23 09:01 Interval history: 07/06 Chief Complaint: Nausea vomiting diarrhea shortness of breath Narrative: This is a 57-year-old male with past medical history insulin-dependent diabetes mellitus, ESRD on hemodialysis Friday who presents with nausea vomiting and diarrhea for 2 days and reports missing dialysis and not having taken his medications for 3 days including insulin. He has recently moved from the [facility] and is having insurance issues. He denies abdominal pain chest pain shortness of breath cough fever chills. He characterizes the diarrhea as brown. He was placed on 2 L of nasal cannula. Chest x-ray not reading as overt abnormalities. White count of 11.0. ABG demonstrating pH is 7.35. Anion gap 21. BUN 50. Creatinine 9.3. Glucose 472. Hemoglobin A1c 10.6%. Lactic acid 1.6. Troponin 0.051 and 0.055. Beta hydroxybutyrate 4.95. Salicylate and acetaminophen unremarkable. Flu COVID RSV PCR negative. 07/07 Patient was ICU for DKA, transitioned off insulin infusion and transferred to medical floor. denies shortness of breath, chest pain, abdominal pain, nausea, vomiti
--- NOTE | 2023-07-09 11:06 | P.PNNP_ITS ---
Progress Note: A&P Assessment and Plan (1) End stage renal disease: Code(s): N18.6 - End stage renal disease Status: Chronic Assessment and Plan: * HD today to transition back to Fri/Fri/Friday outpatient dialysis schedule * follow electrolytes, volume status, and clearance * outpatient dialysis clinic = [facility] Arreola (2) DKA (diabetic ketoacidosis): Code(s): E11.10 - Type 2 diabetes mellitus with ketoacidosis without coma Status: Resolved Assessment and Plan: * elevated blood sugars in association with elevated beta hydroxybutyrate as well as elevated anion gap on admission * s/p IVF bolus and initiated on insulin gtt * gap has closed -- off insulin gtt * started on long acting insulin and SSI * follow blood sugars (3) Nausea, vomiting and diarrhea: Code(s): R11.2 - Nausea with vomiting, unspecified; R19.7 - Diarrhea, unspecified Status: Acute Assessment and Plan: * likely secondary to #2 * resumed on home reglan -- component of gastroparesis (?) * follow symptoms (4) Hypoxia: Code(s): R09.02 - Hypoxemia Status: Acute Assessment and Plan: * drop in O2 saturations with sleep -- possbly due to undiagnosed SWATHI * supplmental oxygen in place with good oxygenation * will likely need outpatient sleep study (5) Anemia: Code(s): D64.9 - Anemia, unspecified Status: Chronic Assessment and Plan: * presumably related to ESRD * Epogen with HD * follow trend of H/H Not opposed to discharge from renal perspective if otherwise medically stable. Will continue to follow. Subjective Date/time seen: 07/09/23 11:06 Interval history: Follow-up for end stage renal disease on hemodialysis. Transferred out of ICU after weaned off insulin gtt; tolerated HD treatment yesterday and tolerating HD treatment currently at the time of my visit (seen on HD at 10:55AM); no apparent distress voiced overnight or earlier this morning. Exam Narrative: General: WD/WN male in NAD Heart: normal S1 and S2; no rub Lungs: clear to auscultation Abdomen: soft, nontender, nondistended, positive bowel sounds Extremities: no cyanosis or clubbing; no edema Skin: warm and dry Objective Data Vital Signs Vital Signs: Vital Signs Temp Pulse Resp BP Pulse Ox O2 Del Method O2 Flow Rate 07/09/23 10:13 98.2 F 90 16 145/77 H 07/09/23 08:25 96 159/73 H 99 07/08/23 23:20 Room Air 07/08/23 23:27 98.2 F 103 H 17 147/79 H 96 07/08/23 22:00 98.3 F 90 18 136/83 100 07/08/23 20:31 98.4 F 96 14 136/67 07/08/23 20:20 94 149/94 H 07/08/23 20:15 95 125/72 07/08/23 20:00 95 18 100 Room Air 07/08/23 20:00 95 147/80 H 07/08/23 19:45 99 133/72 07/08/23 19:30 95 167/81 H 07/08/23 19:15 94 158/77 H 07/08/23 19:00 98 106/80 07/08/23 18:45 95 128/73 07/08/23 18:30 97 160/77 H 07/08/23 18:00 98.7 F 100 18 131/73 100 07/08/23 18:15 97 144/79 H 07/08/23 18:00 97 131/73 07/08/23 17:45 99 155/75 H 07/08/23 17:30 101 H 148/89 H 07/08/23 17:15 101 H 135/86 07/08/23 17:00 101 H 150/81 H
--- NOTE | 2023-07-09 11:06 | PM.PNNEP ---
Progress Note: A&P Assessment and Plan (1) End stage renal disease: Code(s): N18.6 - End stage renal disease Status: Chronic Assessment and Plan: HD today to transition back to Fri/Fri/Friday outpatient dialysis schedule follow electrolytes, volume status, and clearance outpatient dialysis clinic = [facility]/Marisa Arreola (2) DKA (diabetic ketoacidosis): Code(s): E11.10 - Type 2 diabetes mellitus with ketoacidosis without coma Status: Resolved Assessment and Plan: elevated blood sugars in association with elevated beta hydroxybutyrate as well as elevated anion gap on admission s/p IVF bolus and initiated on insulin gtt gap has closed -- off insulin gtt started on long acting insulin and SSI follow blood sugars (3) Nausea, vomiting and diarrhea: Code(s): R11.2 - Nausea with vomiting, unspecified; R19.7 - Diarrhea, unspecified Status: Acute Assessment and Plan: likely secondary to #2 resumed on home reglan -- component of gastroparesis (?) follow symptoms (4) Hypoxia: Code(s): R09.02 - Hypoxemia Status: Acute Assessment and Plan: drop in O2 saturations with sleep -- possbly due to undiagnosed SWATHI supplmental oxygen in place with good oxygenation will likely need outpatient sleep study (5) Anemia: Code(s): D64.9 - Anemia, unspecified Status: Chronic Assessment and Plan: presumably related to ESRD Epogen with HD follow trend of H/H Not opposed to discharge from renal perspective if otherwise medically stable. Will continue to follow. Subjective Date/time seen: 07/09/23 11:06 Interval history: Follow-up for end stage renal disease on hemodialysis. Transferred out of ICU after weaned off insulin gtt; tolerated HD treatment yesterday and tolerating HD treatment currently at the time of my visit (seen on HD at 10:55AM); no apparent distress voiced overnight or earlier this morning. Exam Narrative: General: WD/WN male in NAD Heart: normal S1 and S2; no rub Lungs: clear to auscultation Abdomen: soft, nontender, nondistended, positive bowel sounds Extremities: no cyanosis or clubbing; no edema Skin: warm and dry Objective Data Vital Signs Vital Signs: Vital Signs Temp Pulse Resp BP Pulse Ox O2 Del Method O2 Flow Rate 07/09/23 10:13 98.2 F 90 16 145/77 H 07/09/23 08:25 96 159/73 H 99 07/08/23 23:20 Room Air 07/08/23 23:27 98.2 F 103 H 17 147/79 H 96 07/08/23 22:00 98.3 F 90 18 136/83 100 07/08/23 20:31 98.4 F 96 14 136/67 07/08/23 20:20 94 149/94 H 07/08/23 20:15 95 125/72 07/08/23 20:00 95 18 100 Room Air 07/08/23 20:00 95 147/80 H 07/08/23 19:45 99 133/72 07/08/23 19:30 95 167/81 H 07/08/23 19:15 94 158/77 H 07/08/23 19:00 98 106/80 07/08/23 18:45 95 128/73 07/08/23 18:30 97 160/77 H 07/08/23 18:00 98.7 F 100 18 131/73 100 07/08/23 18:15 97 144/79 H 07/08/23 18:00 97 131/73 07/08/23 17:45 99 155/75 H 07/08/23 17:30 101 H 148/89 H 07/08/23 17:15 101 H 135/86 07/08/23 17:00 101 H 150/81 H 07/08/23 16:49 100 139/100 H 07/08/23 16:20 2 07/08/23 16:15 98.4 F 99 15 160/73 H 07/08/23 16:00 100 74 H 100 Nasal Cannula 2.5 07/08/23 16:00 98.3 F 100 74 H 160/74 H 100 Intake/Output Intake/Output: Intake & Output 07/06/23 07/07/23 07/08/23 07/09/23 23:59 23:59 23:59 23:59 Intake Total 400 460 240 Output Total 2000 Balance 400 -1540 240 Meds/Results Medications: Active Medications Generic Name Dose Route Start Last Admin Trade Name Freq PRN Reason Stop Dose Admin Clopidogrel Bisulfate 75 mg 07/09/23 09:00 07/09/23 08:27 Clopidogrel Bisulfate 75 Mg Tablet PO 75 mg DAILY KAITLYN Administration Dextrose 12.5 gm
[2023-07-09 11:52] LABS: Glucose Point of Care 107 mg/dl (65-105)
[2023-07-09] MEDS: PRAMIPEXOLE 0.25 MG TABLET 0.75 MG PO ×3 (12:53→21:05)
[2023-07-09] MEDS: METOCLOPRAMIDE HCL INJ 10 MG/2 ML VIAL 2.5 MG IV PUSH ×3 (12:54→23:02)
[2023-07-09 16:57] LABS: Glucose Point of Care 69 mg/dl (65-105)
[2023-07-09 20:44] LABS: Glucose Point of Care 204 mg/dl (65-105)
[2023-07-10] MEDS: METOCLOPRAMIDE HCL INJ 10 MG/2 ML VIAL 2.5 MG IV PUSH ×2 (05:10→12:52)
[2023-07-10 06:10] LABS: Hematocrit 35.9 % (42.0-52.0); Hemoglobin 11.8 g/dL (14.0-18.0); Mean Corpuscular HGB Conc 32.9 g/dl (32-36); Mean Corpuscular Hemoglobin 31.1 pg (26-34); Mean Corpuscular Volume 94.5 fl (80-100); Mean Platelet Volume 10.7 fl (7.4-10.4); Platelet Count Result 220 k/mm3 (150-375); Red Cell Distribution Width 12.4 % (11.5-14.5); White Blood Count 5.1 K/mm3 (4.5-10.0)
[2023-07-10 06:23] LABS: Alanine Aminotransferase 19 U/L (6-50); Albumin Level 4.1 g/dL (3.5-5.1); Alkaline Phosphatase 98 U/L (38-126); Anion Gap 9 mmol/L (8-16); Aspartate Amino Transferase 27 U/L (17-59); Bilirubin,Total 0.5 mg/dL (0.2-1.3); Blood Urea Nitrogen 23 mg/dL (9-20); Calcium 9.5 mg/dL (8.4-10.2); Carbon Dioxide 27 mmol/L (22-30); Chloride 101 mmol/L (98-107); Estimated CRCL calculation 11 ml/min; Estimated Glomerular Filt Rate 8; Glucose 208 mg/dL (65-110); Magnesium 2.2 mg/dL (1.6-2.3); Phosphorus 5.3 mg/dL (2.5-4.5); Potassium 4.1 mmol/L (3.4-5.0); Sodium 137 mmol/L (137-145)
--- NOTE | 2023-07-10 07:56 | P.DS_ITS ---
DS: Admitting Diagnosis Discharge Date 07/10/23 Admitting Diagnosis DKA, ESRD DS: Discharge Diagnosis Discharge Diagnosis (1) DKA (diabetic ketoacidosis): Code(s): E11.10 - Type 2 diabetes mellitus with ketoacidosis without coma Status: Resolved Assessment and Plan: Patient presented with nausea, vomiting, diarrhea. Has not taking his insulin for 3 days prior to admission due to insurance issues, as he has relocated from [facility] to this area. - DKA protocol in ICU -pt off insulin drip ok to transfer to medical floor 07/08 * Lantus 18 units daily and high-dose sliding scale initiated yesterday * hypoglycemia protocol in place * morning glucose 296 * will increase Lantus dosing today * continue glucose monitoring 07/09 * AM glucose 208 * current Lantus dose is 18 units daily and lispro high-dose corrective scale * patient agreeable discharge on these medications. Stated these medications will manage his blood sugars * patient is stable for discharge today. with follow-up with PCP (2) ESRD (end stage renal disease) on dialysis: Code(s): N18.6 - End stage renal disease; Z99.2 - Dependence on renal dialysis Status: Acute Assessment and Plan: Patient has a history of end-stage renal disease on dialysis, Friday, Friday, Friday -nephrology has been consulted -dialysis per Nephrology 07/08 * outpatient dialysis clinic = [facility]/Marisa Arreola * patient went to dialysis today * dialysis stopped early due to her behavior with dialysis nurse * notified okay with stopping early- 600 of fluid off * BUN 22, creatinine 6.5 07/09 * longstanding history of chronic kidney disease * utilizes [facility] * dialysis days are Friday * has catheter in place, notes that left arm fistula is clogged per patient * okay to discharge today from Nephrology (3) Nausea, vomiting and diarrhea: Code(s): R11.2 - Nausea with vomiting, unspecified; R19.7 - Diarrhea, unspecified Status: Acute Assessment and Plan: Nausea, vomiting and diarrhea have resolved likely related to diabetic ketoacidosis -patient on metoclopramide. 07/08 * patient denied any nausea vomiting or diarrhea at this time. resolved (4) Acute hypoxemic respiratory failure: Code(s): J96.01 - Acute respiratory failure with hypoxia Status: Acute Assessment and Plan: Patient seems to have sleep apnea and desaturates while sleeping. Currently on 2 L nasal cannula with adequate O2 sats -patient may require a sleep study as an outpatient 07/08 * patient denies history of sleep apnea, when questioned about his respiratory symptoms throughout the night, such a awakening by coughing, he expresses he does not know * patient observed on room air with no respiratory distress noted 07/09 * patient examined up to chair, on room air, no respiratory distress noted at time assessment * patient denies any shortness of breath or difficulty breathing * patient denies any concerns of sleep apnea. educated to follow up with care provider For appropriate testing (5) Elevated troponin: Code(s): R79.89 - Other specified abnormal findings of blood chemistry Status: Acute Assessment and Plan: Troponins were mildly elevated but flat, could be related to diabetic ketoacidosis, end-stage renal disease, - await echo report 07/08 * echo noted Left ventricular systolic function is normal, estimated at 65-70%. The left ventricular diastolic function is g
--- NOTE | 2023-07-10 07:56 | PM.DS ---
DS: Admitting Diagnosis Discharge Date 07/10/23 Admitting Diagnosis DKA, ESRD DS: Discharge Diagnosis Discharge Diagnosis (1) DKA (diabetic ketoacidosis): Code(s): E11.10 - Type 2 diabetes mellitus with ketoacidosis without coma Status: Resolved Assessment and Plan: Patient presented with nausea, vomiting, diarrhea. Has not taking his insulin for 3 days prior to admission due to insurance issues, as he has relocated from [facility] to this area. - DKA protocol in ICU -pt off insulin drip ok to transfer to medical floor 07/08 Lantus 18 units daily and high-dose sliding scale initiated yesterday hypoglycemia protocol in place morning glucose 296 will increase Lantus dosing today continue glucose monitoring 07/09 AM glucose 208 current Lantus dose is 18 units daily and lispro high-dose corrective scale patient agreeable discharge on these medications. Stated these medications will manage his blood sugars patient is stable for discharge today. with follow-up with PCP (2) ESRD (end stage renal disease) on dialysis: Code(s): N18.6 - End stage renal disease; Z99.2 - Dependence on renal dialysis Status: Acute Assessment and Plan: Patient has a history of end-stage renal disease on dialysis, Friday, Friday, Friday -nephrology has been consulted -dialysis per Nephrology 07/08 outpatient dialysis clinic = [facility] patient went to dialysis today dialysis stopped early due to her behavior with dialysis nurse notified okay with stopping early- 600 of fluid off BUN 22, creatinine 6.5 07/09 longstanding history of chronic kidney disease utilizes [facility] Arreola dialysis days are Friday has catheter in place, notes that left arm fistula is clogged per patient okay to discharge today from Nephrology (3) Nausea, vomiting and diarrhea: Code(s): R11.2 - Nausea with vomiting, unspecified; R19.7 - Diarrhea, unspecified Status: Acute Assessment and Plan: Nausea, vomiting and diarrhea have resolved likely related to diabetic ketoacidosis -patient on metoclopramide. 07/08 patient denied any nausea vomiting or diarrhea at this time. resolved (4) Acute hypoxemic respiratory failure: Code(s): J96.01 - Acute respiratory failure with hypoxia Status: Acute Assessment and Plan: Patient seems to have sleep apnea and desaturates while sleeping. Currently on 2 L nasal cannula with adequate O2 sats -patient may require a sleep study as an outpatient 07/08 patient denies history of sleep apnea, when questioned about his respiratory symptoms throughout the night, such a awakening by coughing, he expresses he does not know patient observed on room air with no respiratory distress noted 07/09 patient examined up to chair, on room air, no respiratory distress noted at time assessment patient denies any shortness of breath or difficulty breathing patient denies any concerns of sleep apnea. educated to follow up with care provider For appropriate testing (5) Elevated troponin: Code(s): R79.89 - Other specified abnormal findings of blood chemistry Status: Acute Assessment and Plan: Troponins were mildly elevated but flat, could be related to diabetic ketoacidosis, end-stage renal disease, - await echo report 07/08 echo noted Left ventricular systolic function is normal, estimated at 65-70%. The left ventricular diastolic function is grade I diastolic dysfunction. 3/ most likely related to DKA, ESRD. patient denies chest pain, shortness of breath, pain Plan . DS: Summary Hospital Course Reason for hospitalization: DKA, ESRD Hospital Course: Interval history: 3/ Chief Complaint: Nausea vomiting diarrhea shortness of breath Narrative: This is a 57-year-old male with past medical history insulin-dependent diabetes me
[2023-07-10 08:16] LABS: Glucose Point of Care 220 mg/dl (65-105)
[2023-07-10] MEDS: FAMOTIDINE 20 MG/2 ML VIAL 10 MG IV PUSH (08:20)
[2023-07-10] MEDS: CLOPIDOGREL BISULFATE 75 MG TABLET PO (08:23)
[2023-07-10] MEDS: FUROSEMIDE 80 MG TABLET PO (08:23)
[2023-07-10] MEDS: SEVELAMER CARBONATE 800 MG TABLET 1600 MG PO ×2 (08:23→11:58)
[2023-07-10] MEDS: PRAMIPEXOLE 0.25 MG TABLET 0.75 MG PO ×2 (08:24→12:50)
[2023-07-10] MEDS: SERTRALINE HCL 50 MG TABLET PO (08:24)
[2023-07-10] MEDS: ENOXAPARIN 30 MG/0.3 ML SYRINGE SUB-Q (08:25)
[2023-07-10] MEDS: INSULIN ASPART (*BKC) 100 UNITS/ML SUB-Q ×2 (08:26→11:58)
[2023-07-10 08:30] VITALS: RESP 18; O2SAT 100
[2023-07-10] MEDS: INSULIN GLARGINE (*BKC) 100 UNITS/ML 18 UNITS SUB-Q (08:30)
[2023-07-10 08:42] VITALS: PULSE 92; RESP 18; TEMP 36.6; O2SAT 100
[2023-07-10 08:51] VITALS: BP 178/90
[2023-07-10 11:47] LABS: Glucose Point of Care 201 mg/dl (65-105)
[2023-07-10 13:52] VITALS: BP 128/71; PULSE 81; RESP 16; TEMP 36.9; O2SAT 100
--- NOTE | 2023-07-11 15:12 | PCCDE ---
07/11/23 2:30 PM Followed up with patient post DC by phone. Reports BGs under 200; has enough insulin to last until Friday, and is picking up more later this afternoon at local pharmacy.? Appt scheduled with GENERAL COUNSEL at Dr. Chandan [facility] office for Friday. States his fianc? reached out to endo provided but patient unsure of outcome of phone call. Enc?d to talk with GENERAL COUNSEL at Dr. [facility] office re: outpatient DSMT and follow up with endo. C/o leg pain during HD. Staff aware. Enc?d to discuss with MD/GENERAL COUNSEL [facility]J
[2023-07-21 15:56] LABS: Glucose Point of Care 139 mg/dl (65-105)
== END 2023-07-10 16:00 | disposition home or self-care (01) | DRG 637 ==
LOC: ANHED 21:22 → ANHICU 22:17 → ANH2MED 07-08 23:08
PROVIDERS: Family Medicine; Internal Medicine; Internal Medicine Nephrology; Nurse Practitioner Family; Admitting Provider General Practice; Emergency Provider Emergency Medicine; PCP Family Medicine; Visit Provider Nurse Practitioner Family
DX: E11.10 Type 2 diabetes mellitus with ketoacidosis without coma (principal); J96.01 Acute respiratory failure with hypoxia; N18.6 End stage renal disease; E11.22 Type 2 diabetes mellitus with diabetic chronic kidney disease; G47.30 Sleep apnea, unspecified; D63.1 Anemia in chronic kidney disease; Z20.822 Contact with and (suspected) exposure to COVID-19; H54.8 Legal blindness, as defined in USA; R79.89 Other specified abnormal findings of blood chemistry; Z91.148 Patient's other noncompliance with medication regimen for other reason; Z99.2 Dependence on renal dialysis
CPT/HCPCS: 36415; 36600; 71045; 80048; 80053; 80307; 82010; 82248; 82375; 82803; 82805; 82948; 83036; 83050; 83605; 83690; 83735; 84100; 84145; 84484; 85025; 85027; 86706; 87040; 87340; 87493; 87636; 87637; 87641; 93005; 93306; 96374; 96375; 97161; 97165; 99285; A9270; G0257; J1644; J1650; J1815; J2405; J2765; J7030; J7040